=== PATIENT | female | born 1980 | race Asian ===

== ENCOUNTER 2017-08-07 10:29 | Emergency (ER) | payer BC ==
[2017-08-07 10:36] VITALS: BP 136/84
--- NOTE | 2017-08-07 11:12 | ER Document Report ---
HPI - HPI Pain Level: 4 Notes: Patient is a 36-year-old female with no significant past medical history presents to the ED complaining of a rash to her bilateral hands and an ulceration to her right lateral third digit. Pt does not wear a ring on that finger or the fingers around it. The rash to her hands has been ongoing for about a month and is pruritic. Patient states that she has noticed that her skin wants to peel as well and is becoming rough. Patient states that she has been putting her hands in warm water and applying lotions with minimal relief. Patient states that she is exposed to chemicals implants at work, and denies any use of gloves. Patient has not been wearing any rings around with the ulceration is formed on her finger. Patient states that she does have some pain associated distally, but is still able to use her hands and fingers without any difficulties. She has not noticed any red streaking, abscess, or discharge. She denies any significant past medical history or drug allergies. Denies any smoking or drug use. Denies any headache, fever, neck pain, chest pain, palpitations, syncope, cough, shortness of breath, wheeze, dyspnea, abdominal pain, nausea/vomiting/diarrhea, urinary retention, dysuria, hematuria , numbness/tingling, muscle paralysis/weakness. - ROS Notes: REVIEW OF SYSTEMS: CONSTITUTIONAL : Denies fever, chills, or sweats. Denies recent illness. EENT: Denies eye, ear, throat, or mouth pain or symptoms. Denies nasal or sinus congestion or discharge. Denies throat, tongue, or mouth swelling or difficulty swallowing. CARDIOVASCULAR: Denies chest pain. Denies palpitations or racing or irregular heart beat. Denies ankle edema. RESPIRATORY: Denies cough, cold, or chest congestion. Denies shortness of breath, difficulty breathing, or wheezing. GASTROINTESTINAL: Denies abdominal pain or distention. Denies nausea, vomiting , or diarrhea. Denies blood in vomitus, stools, or per rectum. Denies black, tarry stools. Denies constipation. GENITOURINARY: Denies difficulty urinating, painful urination, burning, frequency, blood in urine, or discharge. MUSCULOSKELETAL: see hpi SKIN: see hpi NEUROLOGICAL: Denies confusion or altered mental status. Denies passing out or loss of consciousness. Denies dizziness or lightheadedness. Denies headache. Denies weakness or paralysis or loss of use of either side. Denies problems with gait or speech. Denies sensory loss, numbness, or tingling. ALL OTHER SYSTEMS REVIEWED AND NEGATIVE. Dictation was performed using [employer] voice recognition software - CARDIOVASCULAR Cardiovascular: DENIES: Chest pain - REPRODUCTIVE Reproductive: REPORTS: : Past Medical History - Social History Smoking Status: Never Smoker Chew tobacco use (# tins/day): No Frequency of alcohol use: None Drug Abuse: None Family History: Reviewed & Not Pertinent Renal/ Medical History: Denies: Hx Peritoneal Dialysis Past Surgical History: Reports: Hx Section - 2 Vertical Provider Document - CONSTITUTIONAL Agree With Documented VS: Yes Notes: PHYSICAL EXAMINATION: GENERAL: Well-appearing, well-nourished and in no acute distress. NECK: Normal range of motion, supple without lymphadenopathy LUNGS: Breath sounds clear to auscultation bilaterally and equal. No wheezes rales or rhonchi. HEART: Regular rate and rhythm without murmurs, rubs, gallops. Musculoskeletal: Rt hand/finger: FROM to passive/active. Strength 5+/5. No deficits noted. Extremities: No cyanosis, clubbing, or edema b/l. Peripheral pulses 2+. Capillary refill less than 3 seconds. NEUROLOGICAL: Cranial nerves grossly intact. Normal speech, normal gait. Normal sensory, motor exams PSYCH: Normal mood, normal affect. SKIN: Hands b/l: dry lichenification and skin peeling noted. No erythema, abscess, or discharge. Non-tender. Rt 3rd lateral finger: + 0.5cm stage 1-2 ulceration (no involvement of bone or muscle) noted. no erythema, streaks, abscess, or discharge. + mild tenderness distally. - INFECTION CONTROL TRAVEL OUTSIDE OF THE [place] IN LAST 30 DAYS: No - RESPIRATORY O2 Sat by Pulse Oximetry: 98 Course - Re-evaluation Re-evalutation: 08/07/17 15:28 Patient is an afebrile, well-hydrated, 36-year-old female who presents to the ED with dermatitis of the hands bilaterally along with an early ulceration to her right third digit. I will send her home with a prescription for clindamycin along with a prescription for clobetasol ointment she may use as directed. Low suspicion/risk for any septic joint, sepsis, necrotizing fasciitis, bone or muscle erosion, fracture, or other systemic emergent condition at this time. Patient is aware that her condition can change from initial presentation she needs to monitor symptoms closely and seek medical attention if any acute changes. Conservative measures otherwise for symptoms as reviewed. Recheck with your PCM this week. Consider consult dermatology. Return to the ED with any worsening/concerning symptoms otherwise as reviewed in discharge. Patient is in agreement. 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 Prescriptions: Clindamycin HCl [Cleocin 300 mg Capsule] 300 mg PO TID #30 capsule Clobetasol Propionate/Emoll [Clobetasol Emollient 0.05% Crm] 1 applic TP BID #1 cream..g. Forms: Elevated Blood Pressure Referrals: [facility] [Provider Group] - Follow up as needed [facility] [Provider Group] - Follow up as needed TERRIE FISCHER DO [ACTIVE STAFF] - Follow up as needed
--- NOTE | 2017-08-07 11:37 | RADIOLOGY REPORT (SQ) ---
EXAM DESCRIPTION: HAND RIGHT 3 VIEWS COMPLETED DATE/TIME: 08/07/2017 11:24 am REASON FOR STUDY: right medial 3rd digit ulceration, infection COMPARISON: None. EXAM PARAMETERS: NUMBER OF VIEWS: Three views. TECHNIQUE: AP, lateral and oblique radiographic images acquired of the right hand. LIMITATIONS: None. FINDINGS: MINERALIZATION: Normal. BONES: No acute fracture or dislocation. No worrisome bone lesions. JOINTS: No effusions. SOFT TISSUES: No soft tissue swelling. No foreign body. OTHER: No other significant finding. IMPRESSION: NEGATIVE STUDY OF THE RIGHT HAND. NO RADIOGRAPHIC EVIDENCE OF ACUTE INJURY. TECHNICAL DOCUMENTATION: JOB ID: [id number] [employer]- All Rights Reserved
== END 2017-08-07 11:48 | disposition home or self-care (01) ==
LOC: ER 10:29
DX: L98.499 Non-pressure chronic ulcer of skin of other sites with unspecified severity (principal); L30.9 Dermatitis, unspecified; R21 Rash and other nonspecific skin eruption
CPT/HCPCS: 99283